=== PATIENT | female | born 1980 | race Caucasian/White ===

== ENCOUNTER → 2024-03-16 13:10 | Outpatient (REF) | payer OTHER, SELFPAY | LOC: WDC 13:10 | PROVIDERS: ATTENDING PHYSICIAN Obstetrics & Gynecology; FAMILY PHYSICIAN Family Medicine | DX: Z12.31 Encounter for screening mammogram for malignant neoplasm of breast (principal) | CPT/HCPCS: 77063; 77067 ==

== ENCOUNTER 2024-12-28 08:40 | Outpatient (RCR) | payer OTHER, SELFPAY | END 2024-12-28 23:59 | disposition home or self-care (01) | LOC: RPT 08:40 | PROVIDERS: ATTENDING PHYSICIAN Family Medicine; FAMILY PHYSICIAN Family Medicine | DX: M54.12 Radiculopathy, cervical region (principal); S49.91XD Unspecified injury of right shoulder and upper arm, subsequent encounter; Z73.6 Limitation of activities due to disability; M62.81 Muscle weakness (generalized) | CPT/HCPCS: 97110; 97162 ==

== ENCOUNTER → 2025-04-23 15:02 | Outpatient (REF) | payer OTHER, SELFPAY | LOC: WDC 15:02 | PROVIDERS: ATTENDING PHYSICIAN Obstetrics & Gynecology | DX: Z12.31 Encounter for screening mammogram for malignant neoplasm of breast (principal) | CPT/HCPCS: 77063; 77067 ==

== ENCOUNTER 2025-09-12 18:33 | Emergency (ER) | payer OTHER, SELFPAY ==
[2025-09-12 18:34] VITALS: BP 150/106
--- NOTE | 2025-09-12 19:42 | ED.GENMED ---
History of Present Illness
General
Chief Complaint: Cold/Flu/URI Symptoms
Source: patient
Exam Limitations: none
Time Seen by Provider: 09/12/25 19:32
Nursing documentation reviewed up to this point in time: agreed with
History of Present Illness
History of Present Illness:
Patient is a 44-year-old female who presents to the ER for evaluation. Patient started with ear pain sinus symptoms yesterday went to urgent care and was prescribed Augmentin for possible ear infection. Today patient complains of generalized
bodyaches though she denies any ear pain now. She feels nauseous dizzy. She does report that they tested for COVID and flu which were negative. She denies any recent fevers. She has underlying anxiety and takes Xanax as needed and complains of
feeling extremely anxious. She also took Tylenol Cold and flu and thinks this made her anxiety even worse. She denies any chest pain shortness of breath. denies any cough. no history of PE/DVT.
Past History
Past History
ED Past Medical History: Psychiatric and Other (Kidney stones, endometriosis)
ED Past Surgical History: (X 3 last June 2018), Gynecological (Hysterectomy), Orthopedic (Right arm surgery), Urological and Other
Social History
Tobacco: Non-smoker
Alcohol: Occasional
Personal: Single
Living: other (Significant other)
Employment: Employed (layed off)
Family History
Family History: Other
Phy Exam
General Physical Exam
General Presentation: no apparent distress
General age: appears stated age
General Skin: warm and dry
General Habitus: normal
General Mental: alert
General Hydration: appears well hydrated
Cardiovascular Exam
Cardiovascular Exam: tachycardia
Pulmonary Exam
Pulmonary Exam: lungs clear and no respiratory distress
Neurological Exam
Neurological Exam: alert and oriented x3
Musculoskeletal Exam
Musculoskeletal Exam: full ROM
Skin Exam
Skin Exam: normal color and warm/dry
Psychiatric Exam
Psychiatric Exam: normal mood/affect
Course
Orders/Labs/Results
Orders:
Orders
09/12/25 18:37
EKG [Electrocardiogram (*1)] Urgent
Reason for Study: Tachycardia
09/12/25 18:38
EKG- Treatment ONCE
09/12/25 19:58
0.9% Sodium Chloride 1000 ml [Nss] 1,000 ml IV BOLUS
Ketorolac [Toradol] 15 mg IV NOW STA
Lorazepam [Ativan] 1 mg IV NOW STA
Ondansetron Injectable [Zofran] 4 mg IV NOW STA
09/12/25 20:16
COVID-19 Antigen Urgent
Source: Nasal Swab
Influenza A+B Rapid Molecular Urgent
ANA MARIA Source: Nasal Swab
Specimen Description:
09/12/25 20:23
Complete Blood Count/With Diff Urgent
Comprehensive Metabolic Panel Urgent
09/12/25 21:18
Acetaminophen 1000MG/100Ml [Ofirmev] 1,000 mg in 100 ml IV ONCE
Acetaminophen IV Indication:: ED Narcotic Naive Pt-ONCE
09/12/25 22:12
0.9% Sodium Chloride 1000 ml [Nss] 1,000 ml IV BOLUS
09/12/25 22:55
Lorazepam [Ativan] 0.5 mg IV NOW STA
Ondansetron Injectable [Zofran] 4 mg IV NOW STA
Abnormal Lab Results
09/12/25 09/12/25
20:16 20:23
MPV 10.8 H fL
(7.4-10.4)
Abs Immat Gran (auto) 0.1 H 10^3/uL
(0-0.05)
Absolute Neuts (auto) 7.2 H 10^3/uL
(1.4-6.5)
Absolute Lymphs (auto) 0.4 L 10^3/uL
(1.2-3.4)
Absolute Monos (auto) 1.1 H 10^3/uL
(0.1-0.6)
Immature Gran % 0.8 H %
(0-0.5)
Neutrophils % 80.0 H %
(42.2-75.2)
Lymphocytes % 4.8 L %
(20.5-51.1)
Monocytes % 12.2 H %
(1.7-9.3)
Glucose 114 H mg/dl
(70-99)
Total Protein 9.0 H g/dl
(6.3-8.2)
Albumin 5.4 H g/dl
(3.5-5.0)
SARS-CoV-2 Antigen Positive A
(Negative)
09/12/25 20:23
09/12/25 20:23
Vital Signs
Initial and Last Documented VS:
Initial Vital Signs
Temp Pulse Resp BP Pulse Ox
98.2 F 132 18 150/106 100
09/12/25 18:34 09/12/25 18:34 09/12/25 18:34 09/12/25 18:34 09/12/25 18:34
Last Documented Vital Signs
Temp Pulse Resp BP Pulse Ox
98.2 F 117 11 142/89 97
09/12/25 18:34 09/12/25 22:45 09/12/25 22:45 09/12/25 21:00 09/12/25 22:45
MDM/Problems Addressed
Differential Diagnosis Includes:
Not limited to viral syndrome, anxiety
MDM/Problems Addressed:
Patient is a 42-year female complains of bodyaches and nausea. She was seen by urgent care and diagnosed with possible otitis media however on exam there is no evidence of ear infection. She is in no acute distress afebrile but very anxious. She
has underlying anxiety is on Xanax as needed and also took Tylenol cold and flu and thinks this made her anxiety worse.
Patient presents tachycardic and anxious. She was given Zofran fluids and nausea. Patient was found to be COVID-positive which explains patient's body aches. She still complains of bodyaches. Will give a dose of IV Tylenol. Discussed will need
supportive care. She is still tachycardic or very anxious. Will plan to hydrate and reevaluate likely discharge home.
2200: On re-evaluation pt is in no acute distress heart rate decreasing plan for discharge home
2300: Patient now feeling more anxious. She reports to significant anxiety recently and feels that her anxiety has been great getting gradually worse at home. She reports she is under a lot of stress as she cares for her disabled child. Will give
a small addiational dose of ativan/zofran
repeat HR 106 pt feels much more calmer stable for d/c home, discussed supportive care for COVID
*Pulse Oximetry
SaO2: 100
Oxygen Mode of Delivery: Room air
Patient hypoxic: no
*Critical Care Note
Total Time (30-74mins, 75-104mins- exclusive of procedures): Not Applicable
ED Attending Note
-
Portions of this chart may have been created with voice recognition software.� Occasional wrong word or��sound alike� substitutions may have occurred due to the inherent limitations of voice recognition software.
Discharge Plan
Departure
Patient Disposition: Home (Routine Discharge)
Date of Disposition: 09/12/25
Time of Disposition: 23:16
Patient with high blood pressure during this ER visit?: Yes
Condition: Good
Discharge Problem:
COVID-19
Instructions: COVID-19 in adults (DC), Anxiety in adults - ED (DC)
Prescriptions:
No Action
acetaminophen 325 MG tablet
650 mg PO Q4HPRN PRN (Reason: mild pain) Qty: 0 0RF
oxycodone 5 MG tablet
2.5 mg PO Q4HPRN PRN (Reason: moderate pain) Qty: 20 0RF
phenazopyridine 100 MG tablet
100 mg PO Q8 Qty: 10 0RF
ibuprofen 600 MG tablet
600 mg PO Q6HPRN PRN (Reason: mild pain) Qty: 30 0RF
ondansetron 4 MG tablet,disintegrating
4 mg PO TIDPRN PRN (Reason: Nausea) Qty: 15 0RF
oxycodone 5 MG tablet
5 mg PO TID PRN (Reason: Pain) Qty: 15 0RF
oxycodone-acetaminophen [Percocet] 5-325 mg tablet
1 tab PO Q8H PRN (Reason: pain) Qty: 10 0RF
levofloxacin 500 mg tablet
500 mg PO DAILY Qty: 9 0RF
fluconazole [Diflucan] 150 mg tablet
150 mg PO ONCE Qty: 1 1RF
metronidazole 500 mg tablet
500 mg PO Q8H Qty: 29 0RF
amoxicillin-pot clavulanate 875-125 mg tablet
1 tab PO BID Qty: 10 0RF
hydrocodone-acetaminophen 5-300 mg tablet
1 tab PO Q6H PRN (Reason: Pain) Qty: 10 0RF
Referrals:
Venecia Erickson MD [Family Provider, Family Practice]
Activity Restrictions/Additional Instructions:
As discussed you may alternate between ibuprofen and Tylenol for fever chills body aches. Please be sure to stay well-hydrated. Avoid Sudafed as this did contribute to your increasing heart rate. Your elevated heart rate was also a component of
your anxiety. Please follow with your family doctor in the next of days for reevaluation return if any worsening of symptoms.
Interventions
Interventions:
*Risk Screen - Suicide Last Done: 09/12/25 18:34
*General Assessment Last Done: 09/12/25 20:57
*Neglect/Abuse Screening Last Done: 09/12/25 18:34
*ED- Fall Risk Assessment Last Done: 09/12/25 20:57
*ED COVID-19 Vaccine History Last Done: 09/12/25 20:57
*ED Influenza Vaccine History Last Done: 09/12/25 20:57
ED- Pulmonary Assessment Last Done: 09/12/25 20:57
Discharge Date and Time
Print Language: HAITIAN
[2025-09-12] MEDS: ATIVAN 1 MG IV (20:10)
[2025-09-12] MEDS: ZOFRAN 4 MG IV ×2 (20:10→23:00)
[2025-09-12] MEDS: TORADOL 15 MG IV (20:10)
[2025-09-12] MEDS: NSS 1000 IV ×2 (20:10→22:20)
[2025-09-12 20:22] VITALS: BP 140/95
[2025-09-12 20:35] LABS: Hematocrit 41.4 % (37.0-47.0); Hemoglobin 14.1 g/dL (12.0-16.0); Mean Corp Hgb Conc. 34.1 g/dL (33.0-37.0); Mean Corpuscular Volume 84.8 fL (81.0-99.0); Nucleated Red Blood Cells % 0 %; Platelet Count 251 10^3/uL (130-400); Red Cell Dist. Width 12.3 % (11.5-14.5)
[2025-09-12 20:56] LABS: COVID-19 Antigen Positive (Negative)
[2025-09-12 20:58] LABS: ALT (SGPT) 12 U/L (0-35); AST (SGOT) 20 U/L (14-36); Albumin 5.4 g/dl (3.5-5.0); Alkaline Phosphatase 56 U/L (38-126); Blood Urea Nitrogen 11 mg/dl (7-17); Calcium 10.1 mg/dl (8.4-10.2); Carbon Dioxide 23 mmol/L (22-30); Chloride 100 mmol/L (98-107); Glucose 114 mg/dl (70-99); Potassium 4.1 mmol/L (3.5-5.1); Sodium 136 mmol/L (135-145); Total Protein 9.0 g/dl (6.3-8.2); eGFR > 60.00
[2025-09-12 21:00] VITALS: BP 142/89
[2025-09-12] MEDS: OFIRMEV 100 IV (21:22)
[2025-09-12] MEDS: ATIVAN 0.5 MG IV (23:00)
[2025-09-12 23:06] VITALS: BP 144/92
[2025-09-12 23:27] VITALS: BP 144/92
== END 2025-09-12 23:42 | disposition home or self-care (01) ==
LOC: EMR 18:33
PROVIDERS: Nurse Practitioner; EMERGENCY PHYSICIAN Emergency Medicine; FAMILY PHYSICIAN Family Medicine
DX: U07.1 COVID-19 (principal); R03.0 Elevated blood-pressure reading, without diagnosis of hypertension; F41.9 Anxiety disorder, unspecified; Z63.79 Other stressful life events affecting family and household
CPT/HCPCS: 99284; 96374; 96375 ×3; 96376 ×2; 96361; 80053; 85025; 87502; 87811; 93005

== ENCOUNTER → 2025-10-14 07:58 | Outpatient (REF) | payer OTHER, SELFPAY | LOC: WDC 07:58 | PROVIDERS: ATTENDING PHYSICIAN Obstetrics & Gynecology | DX: R92.333 Mammographic heterogeneous density, bilateral breasts (principal) | CPT/HCPCS: 76641 ==